=== PATIENT | male | born 1970 | race Caucasian/White ===

== ENCOUNTER 2024-12-16 10:28 | Emergency (ER) | payer OTHER, SELFPAY ==
[2024-12-16 11:08] VITALS: BP 109/66; PULSE 126; RESP 32; TEMP 37.4; O2SAT 94; BMI 17.7
[2024-12-16 12:01] LABS: PCR FLU A POSITIVE PCR FLU A (Negative); PCR FLU B Negative PCR FLU B (Negative); PCR RSV Negative PCR RSV (Negative); SARS PCR* Negative SARS-CoV-2 (Negative)
[2024-12-16 13:17] VITALS: BP 138/111; PULSE 126; RESP 26; TEMP 37.4; O2SAT 94
--- NOTE | 2024-12-16 13:30 | ED.GENADULT ---
HPI - General Adult General Date Seen: 12/16/24 Chief complaint: Shortness of Breath/Dyspnea Stated complaint: SOB Time Seen by Provider: 12/16/24 13:29 History of Present Illness HPI narrative: 54-year-old female with a history of tobacco use, COPD, presenting to the ER today for evaluation of symptoms that include headache, fever and chills, body aches, cough, shortness of breath, nausea and vomiting, also diarrhea. He actually started with fever probably 6 days ago but most of his symptoms started about 3 days ago. He has been sick with a lot of nausea and has not been able to keep any food down but has been able to drink water. He has all has having some watery diarrhea. In addition to that he is having cough that is wet sound but largely nonproductive. He can feel and hear himself wheezing in his chest. He has a history of an albuterol inhaler and has been trying to use that but it is not effective. He has also had fever and chills. He has had a cough. He has had generalized fatigue. No chest pain. No hemoptysis. No swelling in his legs. His is sick with similar symptoms but hers started after his. Related Data Home Medications ?Medication ?Instructions ?Recorded ?Confirmed albuterol 90 mcg/actuation aerosol mcg inhalation 12/16/24 inhaler Previous Rx's ?Medication ?Instructions ?Recorded ipratropium 0.5 mg-albuterol 3 mg 3 ml inhalation Q4-6H PRN #90 mL 12/16/24 (2.5 mg base)/3 mL nebulization soln nebulizer and compressor #1 ea 12/16/24 ondansetron 4 mg disintegrating 4 mg PO Q8H PRN nausea and 12/16/24 tablet vomiting #10 tabs oseltamivir 75 mg capsule (Tamiflu) 75 mg PO BID 5 days #10 caps 12/16/24 prednisone 20 mg tablet 40 mg (2 x 20 mg) PO DAILY #10 tabs 12/16/24 Allergies Allergy/AdvReac Type Severity Reaction Status Date / Time lidocaine patch Allergy Mild dizzy Uncoded 12/16/24 11:15 PFSH PFSH Social History Smoking Status: Current every day smoker What tobacco products do you use: cigarettes How often do you have a drink containing alcohol: 4 or more times a week How many standard drinks containing alcohol do you have on a typical day: 3 or 4 AUDIT-C Alcohol total score: 5 Non-prescribed substance use: denies use Exam Narrative: Exam Narrative: Constitutional: Appears well-developed and well-nourished. He is very slender without wiry build and a low BMI. Alert. Conversant. Non toxic. Very polite. HENT: Head: Atraumatic. Nose: Nose normal. Mouth/Throat: Oral mucosa is clear somewhat dry but not desiccated or cracked. no trismus. Mild pharyngeal erythema Tonsils symmetric. No tonsillar enlargement or exudate. Eyes: Conjunctivae normal. EOM normal. Pupils equal, round, and reactive to light. No scleral icterus. Neck: Normal range of motion. Neck supple. No tracheal deviation present. No JVD Cardiovascular: Tachycardic, regular rhythm. No gallop. No friction rub. No murmur heard. Symmetric radial artery pulses Pulmonary/Chest: Effort normal. No stridor. No respiratory distress. Diffuse coarse wheezes in all lung jay No rales. No rhonchi . No tenderness. Abdominal: Soft. Bowel sounds normal. No distension. No mass. No tenderness. No rebound. No guarding. Musculoskeletal: RUE: Normal range of motion. No tenderness. No deformity LUE: Normal range of motion. No tenderness. No deformity RLE: Normal range of motion. No edema. No tenderness. No deformity LLE: Normal range of motion. No edema. No tenderness. No deformity Neurological: Alert and oriented to person, place, and time. Normal strength. CN II-VII intact. No sensory deficit. GCS eye subscore is 4. GCS verbal subscore is 5. GCS motor subscore is 6. Normal coordination Skin: Skin is warm and dry. No rash noted. No pallor. Normal capillary refill. Psychiatric: Normal mood. Normal affect. Const: Vital Signs, click to edit/add: Vital Signs - 24 hr 12/16/24 11:08 12/16/24 13:17 Temperature 99.4 F 99.4 F Pulse Rate [Pulse Oximeter] 126 H 126 H Respiratory Rate 32 H 26 H Blood Pressure [Ri ght Upper Arm] 109/66 138/111 H Pulse Oximetry 94 94 Oxygen Delivery Me thod Room Air Room Air Course Course ED Course: Recheck-patient smiling and noting that he feels much better after Zofran and is able to tolerate foods. He also feels better after the DuoNebs and steroids. Breathing better. Repeat lung exam still reveals some wheezes but overall improved compared to arrival. Vital Signs Vital signs: Initial Vital Signs Temperature 99.4 F 12/16/24 11:08 Temperature Source Temporal Artery Scan 12/16/24 11:08 Pulse Rate 126 H 12/16/24 11:08 Respiratory Rate 32 H 12/16/24 11:08 Blood Pressure 109/66 12/16/24 11:08 Blood Pressure Mean 80 12/16/24 11:08 Blood Pressure Position Sitting 12/16/24 11:08 Pulse Oximetry 94 12/16/24 11:08 Oxygen Delivery Method Room Air 12/16/24 11:08 Vital Signs Temperature 99.4 F 12/16/24 11:08 Pulse Rate 126 H 12/16/24 11:08 Respiratory Rate 32 H 12/16/24 11:08 Blood Pressure 109/66 12/16/24 11:08 Pulse Oximetry 94 12/16/24 11:08 Oxygen Delivery Method Room Air 12/16/24 11:08 Temperature 99.4 F 12/16/24 13:17 Pulse Rate 126 H 12/16/24 13:17 Respiratory Rate 26 H 12/16/24 13:17 Blood Pressure 138/111 H 12/16/24 13:17 Pulse Oximetry 94 12/16/24 13:17 Oxygen Delivery Method Room Air 12/16/24 13:17 Medications Administered Medications: Discontinued Medications Generic Name Dose Route Start Last Admin Trade Name Freq PRN Reason Stop Dose Admin Albuterol/Ipratropium 1 neb 12/16/24 13:46 12/16/24 13:57 Iprat-Albut 0.5-2.5 Mg/3 Ml Neb IH 12/16/24 13:47 1 neb ONCE ONE Administration Ondansetron HCl 4 mg 12/16/24 13:46 12/16/24 13:57 Ondansetron Odt 4 Mg Tab PO 12/16/24 13:47 4 mg ONCE ONE Administration Prednisone 40 mg 12/16/24 13:46 12/16/24 13:56 Prednisone 20 Mg Tablet PO 12/16/24 13:47 40 mg ONCE ONE Administration Medical Decision Making [facility] Narrative Medical decision making narrative: This patient presents for evaluation of symptoms including fever and chills, myalgias, cough, shortness of breath, nausea and vomiting and diarrhea. For symptoms began probably 6 days ago but most of the symptoms started 3 days ago. Differential here includes COPD exacerbation, pneumonia, influenza, COVID, GI infection, appendicitis, colitis, diverticulitis, bowel obstruction, other GI pathology, among others. Nasal swab is positive for influenza a which I think would correlate with his symptoms. Although he is several days into the illness, at least 3 days, probably 6 days, because he is a smoker with COPD we will treat him with Tamiflu. Chest x-ray is negative for any acute pneumonia. No evidence for CHF He does have substantial wheezing on his clinical exam here. He has had minimal improvement with his at home inhaler but did have significant nebulizer given here in the ER. Although he was tachycardic, he is not hypoxic. Respiratory rate was elevated at 32 at triage but came down substantially after nebs. He is feeling better and is comfortable discharging home. Will send him home with a course of steroids and nebs. He needs a nebulizer machine at home, prescription provided. There is no signs at this point of serious bacterial infection such as OM, RPA, epiglottitis, [employer], strep pharyngitis, pneumonia, sinusitis, meningitis, bacteremia, serious bacterial infection. He has had trouble some nausea and vomiting and diarrhea for the past couple of days. He has signs of mild dehydration clinically but is feeling much better after Zofran. He feels comfortable discharging home and will be able to hydrate by mouth. Discussed the risk of serious illness from influenza. Close followup with primary care physician is indicated. Return to ED for fever > 103, protracted vomiting, confusion, or other worsening. Also counseled smoking cessation Lab Data Labs: Lab Results 12/16/24 Range/Units 11:18 SARS-CoV-2 (PCR) Negative SARS-CoV-2 (Negative) Influenza Type A (PCR) POSITIVE PCR FLU A A (Negative) Influenza Type B (PCR) Negative PCR FLU B (Negative) RSV (PCR) Negative PCR RSV (Negative) Imaging Data Chest x-ray: Attestation: I have reviewed the pertinent imaging results. My impression: No acute infiltrates Radiologist's impression: Lungs and pleural spaces: No evidence of pneumothorax. Slight rounding of the posterior costophrenic angles, likely secondary to prominent hyperinflation. Some bronchial wall thickening with slight reticular nodular prominence within the right lung, likely infectious bronchitis/bronchiolitis. Discharge Plan Discharge Clinical Impression: Influenza A, COPD exacerbation, Nausea Patient Disposition: Home, Self-Care Condition: Stable Instructions: Influenza (DC), COPD (Chronic Obstructive Pulmonary Disease) (ED), Acute Nausea and Vomiting (ED) Additional Instructions: As we discussed, please come back to the ER right away if you have worsening trouble breathing, high fevers, weakness, uncontrolled nausea and vomiting or dehydration, or if you have any concerns. Please follow-up with your regular doctor for recheck within 7 days. Prescriptions: New oseltamivir [Tamiflu] 75 mg capsule 75 mg PO BID 5 Days Qty: 10 0RF prednisone 20 mg tablet 40 mg PO DAILY Qty: 10 0RF ipratropium-albuterol 0.5 mg-3 mg(2.5 mg base)/3 mL solution for nebulization 3 ml inhalation Q4-6H PRNQty: 90 0RF (DME) nebulizer and compressor Device See Rx Instructions .Route Qty: 1 0RF Rx Instructions: As directed ondansetron 4 mg tablet,disintegrating 4 mg PO Q8H PRN (Reason: nausea and vomiting) Qty: 10 0RF No Action albuterol 90 mcg/actuation aerosol inhalation Follow Up/Referrals: Provider,Not a Local [Primary Care Provider] - Stand Alone Forms: [employer] Info Instructions
[2024-12-16] MEDS: predniSONE 20 MG TABLET 40 MG PO (13:56)
[2024-12-16] MEDS: IPRAT-ALBUT 0.5-2.5 MG/3 ML NEB 1 NEB IH (13:57)
[2024-12-16] MEDS: ONDANSETRON ODT 4 MG TAB PO (13:57)
--- OUTSIDE RECORDS SUMMARY | 2024-12-16 14:05 | XMS_ITS | Clinical Summary ---
Author Organization [facility] Address [address] [place] [id number] Care Team Providers Care Commercial Energy Rater Name Role Phone Unavailable Primary Care Provider Unavailabl e Allergies No known active allergies Medications UNABLE TO FIND Pt unsure of name, 2-3 times daily prn ointment applied to buttock area Active naproxen sodium (ALEVE) 220 MG tablet Take 220 mg by mouth 2 times daily (with meals) Active psyllium (METAMUCIL) 28.3 % packet Take 1 packet by mouth 2 times daily Active albuterol (PROAIR HFA/PROVENTIL HFA/VENTOLIN HFA) 108 (90 Base) MCG/ACT inhaler Inhale 2 puffs into the lungs every 6 hours as needed for shortness of breath / dyspnea or wheezing 18 g 2 Active predniSONE (DELTASONE) 20 MG tablet Take 2 tablets (40 mg) by mouth daily 8 tablet 2 Active traMADol (ULTRAM) 50 MG tablet Take 1 tablet (50 mg) by mouth every 6 hours as needed for severe pain 10 tablet 2 Active Active Problems Problem Noted Date Diagnosed Date Unilateral inguinal hernia 07/23/2016 Rectal bleeding 07/23/2016 Moderate single current epis ode of major depressive disorder 07/23/2016 Immunizations Name Administration Dates Next Due Influenza Vaccine >6 months,quad, PF 09/14/2016 TDAP Vaccine (Boostrix) 07/18/2011 Family History Medical History Relation Comments Colon Cancer No family hx of Relation Status Comments Daughter Alive Father Maternal Grandfather Maternal Grandmother Mother Alive Paternal Grandfather Paternal Grandmother Sister Alive Son Alive Social History Tobacco Use Types Packs/Day Years Used Date Smoking Tobacco: Every Day Cigarettes Smokeless Tobacco: Never Alcohol Use Standard Drinks/Week Comments Yes 0 (1 standard drink = 0.6 oz pur e alcohol) occa PHQ-2 Answer Date Recorded PHQ-2 Score 0 12/02/2018 Adolescent Education Answer Date Record ed Getting School Help Needed Not on file 08/31 Sex and Gender Information Value Date Recorded Sex Assigned at Not on file Legal Sex Male 4:34 AM DIESEL ENGINEER Gender Identity Not on file Sexual Orientation Not on file Last Filed Vital Signs Vital Sign Reading Time Taken Comments Blood Pressure 142/81 09/03/2022 9:45 PM CDT Pulse 81 09/03/2022 9:45 PM CDT Temperature 36.9 C (98.4 F) 09/03/2022 11:37 AM CDT Respiratory Rate 20 09/03/2022 11:37 AM CDT Oxygen Saturation 98% 09/03/2022 9:45 PM CDT Inhaled Oxygen Concentration - - Weight 46.7 kg (103 lb) 12/15/2018 12:15 PM DIESEL ENGINEER Height 160 cm (5' 3) 12/15/2018 12:15 PM DIESEL ENGINEER pe r pt Body Mass Index 18.25 12/15/2018 12:15 PM DIESEL ENGINEER Plan of Treatment Health Maintenance Due Date Last Done Comments ADVANCE CARE PLANNING 1970 ANNUAL REVIEW OF HM ORDERS 1968 CT COLONOGRAPHY 1968 FIT 1968 FLEX SIG 1968 sDNA (Cologuard) 1970 HIV SCREENING 01/31/1983 HEPATITIS C SCREENING 01/31/1986 Pneumococcal Vaccine: 50+ Years (1 of 2 - PCV) 01/31/1987 LIPID 2008 PHQ-9 01/20/2017 07/23/2016 ZOSTER IMMUNIZATION (1 of 2) 01/31/2018 COVID-19 Vaccine (3 - Moderna risk series) 05/09/2021 04/11/2021, 03/14/2021 LUNG CANCER SCREENING 09/03/2023 09/03/2022, 004 INFLUENZA VACCINE (#1) 2024 , 10/17/2018, 09/14/2016, Additional history exists YEARLY PREVENTIVE VISIT 03/01/2025 03/01/2024, 07/23 GLUCOSE 09/03/2025 09/03/2022, 07/23/2016 COLONOSCOPY 12/02/2026 12/02/2016, 12/02/2016 COLORECTAL CANCER SCREENING 12/02/2026 DTAP/TDAP/TD IMMUNIZATION (3 - Td or Tdap) 04/13/2031 04/13/2021, 07/18/2011, 11/29/1998 RSV VACCINE (1 - 1-dose 75+ series) 01/31/2043 HEPATITIS B IMMUNIZATION Completed 004, 01/30/1999, 11/29/1998 DEPRESSION ACTION PLAN Completed 01/09/2018 HPV IMMUNIZATION Aged Out No longer e ligible based on patient's age to complete this topic MENINGITIS IMMUNIZATION Aged Out No l onger eligible based on patient's age to complete this topic RSV MONOCLONAL ANTIBODY Aged Out No l onger eligible based on patient's age to complete this topic Procedures Procedure Name Priority Date/Time Associated Diagnosis Comments CT CHEST PULMONARY EMBOLISM W CONTRAST STAT 09/03/2022 4:00 PM CDT COMPREHENSIVE METABOLIC PANEL STAT 09/03/2022 11:43 AM CDT COLONOSCOPY Routine 12/02/2016 1:35 PM DIESEL ENGINEER from Last 3 Months or Most Recently Relevant to Health Maintenance Results * CT Chest Pulmonary Embolism w Contrast (09/03/2022 4:00 PM CDT) Anatomical Region Laterality Modality Chest, SUBRAD CT BODY, UMP CT CHEST Computed Tomography Impressions 09/03/2022 4:26 PM CDT IMPRESSION: 1. Age indeterminant fractures that are acute or recently subacute at the left eighth and ninth ribs, and right sixth rib. No pneumothorax or effusion. 2. No evidence for pulmonary embolism or acute thoracic aortic abnormality. 3. Emphysema. 4. A few indeterminate pulmonary nodules with the dominant nodule being new since 2003 at the right middle lobe. Recommend follow-up imaging for surveillance, with guidelines below. Recommendations for an incidental lung nodule = or > 6mm to 8mm: Low risk patients: Initial follow-up CT at 6-12 months, then consider CT at 18-24 months if no change. High risk patients: Initial follow-up CT at 6-12 months, then CT at 18-24 months if no change. *Low Risk: Minimal or absent history of smoking or other known risk factors. *Nonsolid (ground-glass) or partly solid nodules may require longer follow-up to exclude indolent adenocarcinoma. *Recommendations based on Guidelines for the Management of Incidental Pulmonary Nodules Detected at CT: From the Fleischner Society 2017, Radiology 2017. GLENROY GOLDSTEIN MD Narrative 09/03/2022 4:[address] CHEST PULMONARY EMBOLISM WITH CONTRAST 09/03/2022 4:00 PM CLINICAL HISTORY: Left lateral rib pain and cough; Left rales as well. TECHNIQUE: CT angiogram chest during arterial phase injection IV contrast. 2D and 3D MIP reconstructions were performed by the sleep lab technologist. Dose reduction techniques were used. CONTRAST: 55mL Isovue-370 COMPARISON: CT chest 07/07/2004. FINDINGS: ANGIOGRAM CHEST: Pulmonary arteries are normal caliber and negative for pulmonary emboli. Thoracic aorta is negative for dissection. No CT evidence of right heart strain. LUNGS AND PLEURA: No effusions. No pneumothorax. Emphysema. Newly identified indeterminant nodule that is 0.7 cm medial right middle lobe series 7 image 213. There are other small bilateral pulmonary nodules that are indeterminate. MEDIASTINUM/AXILLAE: No adenopathy or acute mediastinal abnormality otherwise seen. CORONARY ARTERY CALCIFICATION: Mild. UPPER ABDOMEN: Limited visualization but no acute abnormality is seen. MUSCULOSKELETAL: Nondisplaced fractures that are age indeterminant along the left lateral and posterior eighth and ninth ribs. Age-indeterminate fracture of the right lateral posterior sixth rib. Procedure Note Glenroy Goldstein MD - 09/03/2022 CT CHEST PULMONARY EMBOLISM WITH CONTRAST 09/03/2022 4:00 PM CLINICAL HISTORY: Left lateral rib pain and cough; Left rales as well. TECHNIQUE: CT angiogram chest during arterial phase injection IV contrast. 2D and 3D MIP reconstructions were performed by the sleep lab technologist. Dose reduction techniques were used. CONTRAST: 55mL Isovue-370 COMPARISON: CT chest 07/07/2004. FINDINGS: ANGIOGRAM CHEST: Pulmonary arteries are normal caliber and negative for pulmonary emboli. Thoracic aorta is negative for dissection. No CT evidence of right heart strain. LUNGS AND PLEURA: No effusions. No pneumothorax. Emphysema. Newly identified indeterminant nodule that is 0.7 cm medial right middle lobe series 7 image 213. There are other small bilateral pulmonary nodules that are indeterminate. MEDIASTINUM/AXILLAE: No adenopathy or acute mediastinal abnormality otherwise seen. CORONARY ARTERY CALCIFICATION: Mild. UPPER ABDOMEN: Limited visualization but no acute abnormality is seen. MUSCULOSKELETAL: Nondisplaced fractures that are age indeterminant along the left lateral and posterior eighth and ninth ribs. Age-indeterminate fracture of the right lateral posterior sixth rib. IMPRESSION: 1. Age indeterminant fractures that are acute or recently subacute at the left eighth and ninth ribs, and right sixth rib. No pneumothorax or effusion. 2. No evidence for pulmonary embolism or acute thoracic aortic abnormality. 3. Emphysema. 4. A few indeterminate pulmonary nodules with the dominant nodule being new since 2003 at the right middle lobe. Recommend follow-up imaging for surveillance, with guidelines below. Recommendations for an incidental lung nodule = or > 6mm to 8mm: Low risk patients: Initial follow-up CT at 6-12 months, then consider CT at 18-24 months if no change. High risk patients: Initial follow-up CT at 6-12 months, then CT at 18-24 months if no change. *Low Risk: Minimal or absent history of smoking or other known risk factors. *Nonsolid (ground-glass) or partly solid nodules may require longer follow-up to exclude indolent adenocarcinoma. *Recommendations based on Guidelines for the Management of Incidental Pulmonary Nodules Detected at CT: From the Fleischner Society 2017, Radiology 2017. GLENROY GOLDSTEIN MD Jaiden He DO [facility] [place] Final Result * (ABNORMAL) Comprehensive metabolic panel (09/03/2022 11:43 AM CDT) Sodium 139 136 - 145 mmol/L 09/03/2022 12:18 PM CDT [facility] Potassium 4.4 3.4 - 5.3 mmol/L 09/03/2022 12:18 PM CDT [facility] Chloride 99 98 - 107 mmol/L 09/03/2022 12:18 PM CDT [facility] Carbon Dioxide (CO2) 24 22 - 29 mmol/L 09/03/2022 12:18 PM CDT [facility] Anion Gap 16(H) 7 - 15 mmol/L 09/03/2022 12:18 PM CDT [facility] Urea Nitrogen 9.6 6.0 - 20.0 mg/dL 09/03/2022 12:18 PM CDT LABORATORY Creatinine 0.75 0.67 - 1.17 mg/dL 09/03/2022 12:18 PM CDT LABORATORY Calcium 9.8 8.6 - 10.0 mg/dL 09/03/2022 12:18 PM CDT LABORATORY Glucose 77 70 - 99 mg/dL 09/03/2022 12:18 PM CDT LABORATORY Alkaline Phosphatase 58 40 - 129 U/L 09/03/2022 12:18 PM CDT LABORATORY AST 35 10 - 50 U/L 09/03/2022 12:18 PM CDT LABORATORY ALT 29 10 - 50 U/L 09/03/2022 12:18 PM CDT LABORATORY Protein Total 7.3 6.4 - 8.3 g/dL 09/03/2022 12:18 PM CDT LABORATORY Albumin 4.4 3.5 - 5.2 g/dL 09/03/2022 12:18 PM CDT LABORATORY Bilirubin Total 0.9 <=1.2 mg/dL 09/03/2022 12:18 PM CDT LABORATORY GFR Estimate >90 >60 mL/min/1.7 3m2 09/03/2022 12:18 PM CDT LABORATORY Comment:Effective October 182020 eGFRcr in adults is calculated using the 2020 CKD-EPI creatinine equation which includes age and gender (Tanesha et al., NEJM, DOI: 10.1056/RBFZgy5878152) Blood STRUCTURE OF RIGHT UPPER LIMB / Unknown Venipuncture / Unknown 09/03/2022 11:43 AM CDT 09/03/2022 11:49 AM CDT us Marcio Campos MD LAB - BLOOD ORDERABLES Fi nal Result [facility] [address] Lab (1st floor, no room number) [place] [address], [facility] [phone] * COLONOSCOPY (12/02/2016 1:35 PM DIESEL ENGINEER) COLONOSCOPY [facility] Patient Name: Charlene Perera Procedure Date: 12/02/2016 1:35 PM Date of : 1970 Admit Type: Outpatient Age: 46 Gender: Male Attending MD: Abe Villarreal MD Total Sedation Time: __26___minutes continuous bedside 1:1 Instrument Name: 137 Procedure: Colonoscopy Indications: Hematochezia Providers: Abe Villarreal MD (Doctor) Referring MD: Georgiana Avila Md, MD (Referring MD) Medicines: Midazolam 4 mg IV, Fentanyl 200 micrograms IV Complications: No immediate complications. Procedure: Pre-Anesthesia Assessment: - Prior to the procedure, a History and Physical was performed, and patient medications and allergies were reviewed. The patient is competent. The risks and benefits of the procedure and the sedation options and risks were discussed with the patient. All questions were answered and informed consent was obtained. Patient identification and proposed procedure were verified by the physician in the procedure room. Mental Status Examination: alert and oriented. Airway Examination: normal oropharyngeal airway and neck mobility. Respiratory Examination: clear to auscultation. CV Examination: normal. Prophylactic Antibiotics: The patient does not require prophylactic antibiotics. Prior Anticoagulants: The patient has taken no previous anticoagulant or antiplatelet agents. ASA Grade Assessment: II - A patient with mild systemic disease. After reviewing the risks and benefits, the patient was deemed in satisfactory condition to undergo the procedure. The anesthesia plan was to use moderate sedation / analgesia (conscious sedation). Immediately prior to administration of medications, the patient was re-assessed for adequacy to receive sedatives. The heart rate, respiratory rate, oxygen saturations, blood pressure, adequacy of pulmonary ventilation, and response to care were monitored throughout the procedure. The physical status of the patient was re-assessed after the procedure. After obtaining informed consent, the colonoscope was passed under direct vision. Throughout the procedure, the patient's blood pressure, pulse, and oxygen saturations were monitored continuously. The Olympus Peds Colonoscope Model #PCF-H190L, Endora#137, SN#[id number] was introduced through the anus and advanced to the cecum, identified by appendiceal orifice and ileocecal valve. The colonoscopy was performed without difficulty. The patient tolerated the procedure well. The quality of the bowel preparation was good. Findings: The digital rectal exam was abnormal. Findings include non-thrombosed internal hemorrhoids. The exam was otherwise without abnormality on direct and retroflexion views. Impression: - Non-thrombosed internal hemorrhoids found on digital rectal exam. - The examination was otherwise normal on direct and retroflexion views. Recommendation: - Use sugar-free Metamucil one teaspoon PO BID PRN. - Repeat colonoscopy in 10 years for screening purposes. Procedure Code(s): --- Professional --- 29638, Colonoscopy, flexible, proximal to splenic flexure; diagnostic, with or without collection of specimen(s) by brushing or washing, with or without colon decompression (separate procedure) Diagnosis Code(s): --- Professional --- K64.8, Other hemorrhoids CPT copyright 2013 [employer]. All rights reserved. The codes documented in this report are preliminary and upon branding specialist review may be revised to meet current compliance requirements. Electronically signed by Abe Villarreal MD __ Abe Villarreal MD 12/02/2016 2:22 PM I was physically present for the entire viewing portion of the exam. Abe Villarreal MD Number of Addenda: 0 Note Initiated On: 12/02/2016 1:35 PM Procedure Date: 12/02/2016 1:35:04 PM Scope Withdrawal Time: 0 hours 6 minutes 28 seconds Total Procedure Duration: 0 hours 15 minutes 37 seconds Estimated Blood Loss: Scope In: 2:00:57 PM Scope Out: 2:16:34 PM RADIOLOGY RESULTS 12/02/2016 1:35 PM DIESEL ENGINEER Geogriana Avila MD PROCEDURES Final Result RADIOLOGY RESULTS from Last 3 Months or Most Recently Relevant to Health Maintenance Insurance [facility]
--- OUTSIDE RECORDS SUMMARY | 2024-12-16 14:05 | XMS_ITS | Referral Summary ---
Author Organization [facility] Address [address] [place] [address] Care Team Providers Care Cadd Instructor Name Role Phone Unavailable Primary Care Provider [...] months,quad, PF 09/14/2016 TDAP Vaccine (Boostrix) 07/18/2011 Social History Tobacco Use Types Packs/Day Years [...] on file Legal Sex Male 4:34 AM E TAILER Gender Identity Not on file Sexual Orientation [...] 46.7 kg (103 lb) 12/15/2018 12:15 PM E TAILER Height 160 cm (5' 3) 12/15/2018 12:15 PM E TAILER pe r pt Body Mass Index 18.25 12/15/2018 12:15 PM E TAILER Plan of Treatment Not on file Procedures Procedure Name Priority Date/Time Associated Diagnosis Comments CT CHEST PULMONARY EMBOLISM W CONTRAST STAT 09/03/2022 4:00 PM CDT COMPREHENSIVE METABOLIC PANEL STAT 09/03/2022 11:43 AM CDT COLONOSCOPY Routine 12/02/2016 1:35 PM E TAILER from Last 3 Months or Most Recently [...] Society 2017, Radiology 2017. GLENROY GOLDSTEIN MD [facility] 09/03/2022 4:[address] CHEST PULMONARY EMBOLISM WITH CONTRAST 09/03/2022 4:00 PM CLINICAL HISTORY: Left lateral rib pain and cough; Left rales as well. TECHNIQUE: CT angiogram chest during arterial phase injection IV contrast. 2D and 3D MIP reconstructions were performed by the clinical technologist. Dose reduction techniques were used. CONTRAST: [...] 3D MIP reconstructions were performed by the clinical technologist. Dose reduction techniques were used. CONTRAST: [...] 2017. GLENROY GOLDSTEIN MD Jaiden He DO G CT ORDERABLES Final Result * (ABNORMAL) Comprehensive [...] - 20.0 mg/dL 09/03/2022 12:18 PM CDT [facility] Creatinine 0.75 0.67 - 1.17 mg/dL 09/03/2022 12:18 PM CDT [facility] Calcium 9.8 8.6 - 10.0 mg/dL 09/03/2022 12:18 PM CDT [facility] Glucose 77 70 - 99 mg/dL 09/03/2022 12:18 PM CDT [facility] Alkaline Phosphatase 58 40 - 129 U/L 09/03/2022 12:18 PM CDT [facility] AST 35 10 - 50 U/L 09/03/2022 12:18 PM CDT [facility] ALT 29 10 - 50 U/L 09/03/2022 12:18 PM CDT LABORATORY Protein Total 7.3 6.4 - 8.3 g/dL 09/03/2022 12:18 PM CDT LABORATORY Albumin 4.4 3.5 - 5.2 g/dL 09/03/2022 12:18 PM CDT LABORATORY Bilirubin Total 0.9 <=1.2 mg/dL 09/03/2022 12:18 PM CDT [facility] GFR Estimate >90 >60 mL/min/1.7 3m2 09/03/2022 12:18 PM CDT [facility] Comment:Effective October 182020 eGFRcr in adults is calculated using the 2020 CKD-EPI creatinine equation which includes age and gender (Tanesha et al., NEJM, DOI: 10.1056/TRNLmu9274962) Blood STRUCTURE OF RIGHT UPPER LIMB / Unknown Venipuncture / Unknown 09/03/2022 11:43 AM CDT 09/03/2022 11:49 AM CDT us Marcoi Campos MD LAB - BLOOD ORDERABLES Fi nal Result LABORATORY [facility] [address] Lab (1st floor, no room number) [place] [address] [phone] * COLONOSCOPY (12/02/2016 1:35 PM E TAILER) COLONOSCOPY [facility] Patient Name: Charlene Perera Procedure Date: 12/02/2016 [...] The Olympus Peds Colonoscope Model #PCF-H190L, Endora#137, SN#[id number] was introduced through the anus and advanced [...] screening purposes. Procedure Code(s): --- Professional --- 75426, Colonoscopy, flexible, proximal to splenic flexure; diagnostic, with or without collection of specimen(s) by brushing or washing, with or without colon decompression (separate procedure) Diagnosis Code(s): --- Professional --- K64.8, Other hemorrhoids CPT copyright 2013 [employer]. All rights reserved. The codes documented in this report are preliminary and upon sample selector review may be revised to meet current [...] 2:16:34 PM RADIOLOGY RESULTS 12/02/2016 1:35 PM E TAILER Georgiana Avila MD PROCEDURES Final Result RADIOLOGY RESULTS from Last 3 Months or Most Recently Relevant to Health Maintenance Insurance [facility]
--- OUTSIDE RECORDS SUMMARY | 2024-12-16 14:05 | XMS_ITS | Clinical Summary ---
Author Organization [facility] Address [address] [place] [address] Care Team Providers Care Sign Fabricator Name Role Phone Zaheer Geiger PA-C Primary Care Provider [phone] Source Comments You are receiving this document as you are listed as the primary care provider,follow-up provider, or the patient has been referred to you for consultation.This is in compliance with the Medicare and[facility] Hospital[facility] EHR Incentive Program,which states Providers who transition their patient to another setting of careor provider of care or refers their patient to another provider of care shouldprovide summary care record for each transition of care or referral. [place] Allergies No known active allergies Medications No known medications Active Problems No known active problems Immunizations Name Administration Dates Next Due Flu Vac Preserv Free (3+yrs) 09/08/2006 HepA Adult (19+ yrs) 04/18/2004,11/29/1998 HepB Adult (Engerix-B, 20+ y rs, 3 dose series) 04/18/2004,01/30/1999,11/29/1998 Influenza IIV4 (Quadrivalent) 0.5mL (89317) 11/2017 Td 11/29/1998 Family History Medical History Relation Name Comments neg hx cancer Other no cancers col on or other Relation Name Status Comments Other Social History Tobacco Use Types Packs/Day Years Used Date Smoking Tobacco: Every Day Smokeless Tobacco: Never Comments:Smoking History Pac ks/day: 1/2 PPD Alcohol Use Standard Drinks/Week Comments Yes 0 (1 standard drink = 0.6 oz pur e alcohol) occas PHQ-2 Answer Date Recorded PHQ-2 Score 0 08/09/2020 Sex and Gender Information Value Date Recorded Sex Assigned at Not on file Gender Identity Not on file Sexual Orientation Not on file Last Filed Vital Signs Vital Sign Reading Time Taken Comments Blood Pressure 130/72 12/09/2018 10:08 AM GLUE MOUNTER OPERATOR Pulse 76 12/09/2018 10:08 AM GLUE MOUNTER OPERATOR Temperature 36.4 C (97.5 F) 07/09/2011 10:40 AM CDT Respiratory Rate 16 07/09/2011 10:40 AM CDT Oxygen Saturation 96% 07/09/2011 10:40 AM CDT Inhaled Oxygen Concentration - - Weight 47.6 kg (105 lb) 12/09/2018 10:08 AM GLUE MOUNTER OPERATOR Height - - Body Mass Index - - Plan of Treatment Health Maintenance Due Date Last Done Comments Hep C Screening (Preventive Services) 1970 PSA Screening Discussion 1970 Pneumococcal (1 - PCV) 01/31/1974 HIV Screening (Preventive Services) 1984 Adult Preventive Visit 01/31/1986 Cholesterol 04/09/2009 04/09/2004, 11/29/1998 Zoster/Shingles (1 of 2) 01/31/2018 DTaP/Tdap/Td (2 - Tdap) 07/18/2021 07/18/2011, 11/29 COVID-19 Vaccine (2 - season) 2024 03/14/2021 Influenza (#1) 2024 08/14/2020, 12/0 11/2017, 09/14/2016, Additional history exists Colonoscopy 12/02/2026 12/02/2016 (Completed) HepA Aged Out 04/18/2004, 11/29/1998 No lo nger eligible based on patient's age to complete this topic HepB Completed 04/18/2004, 01/15, 11/29/1998 Hib Aged Out No longer eligi ble based on patient's age to complete this topic IPV (Polio) Aged Out No longer eligi ble based on patient's age to complete this topic MCV4 Aged Out No longer eligi ble based on patient's age to complete this topic Procedures Procedure Name Priority Date/Time Associated Diagnosis Comments LIPID PANEL & DIRECT LDL (IF NEEDED) Routine 04/09/2004 11:59 AM CDT from Last 3 Months or Most Recently Relevant to Health Maintenance Results * (ABNORMAL) Lipid Panel and Direct LDL(If Needed) (04/09/2004 11:59 AM CDT) Hours Fasting 12.0 Hours HP CONVERSION Cholesterol/HDL Ratio Screen 5.0 No normal range HP CONVERSION Cholesterol 219(H) 125 - 199 mg/dL HP CONVERSION HDL Cholesterol 44 40 - 60 mg/dL HP CONVERSION Triglycerides 117 0 - 199 mg/dL HP CONVERSION LDL Calculated 152(H) 66 - 129 mg/dL HP CONVERSION Comment: 04/09/2004 11:5 9 AM CDT Marcio Mcnamara MD LAB_1 HP CONVERSION from Last 3 Months or Most Recently Relevant to Health Maintenance Care Teams Sign Fabricator Relationship Specialty Start Date End Date Zaheer Geiger PA-C [place] [id number] PCP - General Physician Benzene Washer 11/04/21
--- OUTSIDE RECORDS SUMMARY | 2024-12-16 14:05 | XMS_ITS | Clinical Summary ---
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 18 g 1 2 Active Immunizations Name Administration Dates Next Due COVID-19 vaccine (Moderna 100mcg/0.5mL) PF, MDV 04/11/2021,03/14/2021 Hepatitis A (Adult) 04/18/2004,11/29/1998 Hepatitis A (Peds),Unspecified 04/18/2004,1998 Hepatitis A, Unspecified 04/18/2004,11/29/1998 Hepatitis B (Adult) 04/18/2004,01/30/1999,1998 Influenza Virus, Unspecified 09/08/2006,09/08/20 06 Influenza, IIV3 (Age 6-35 mos) 09/13/2009 Influenza, IIV3 (Age >=3 years) 08/25/20 14,08/05/2012,08/13/2011,2009 Influenza, IIV4 08/14/2020,10/17/2018,09/14/2016 Influenza, IIV4 (=>6mos) MDV 09/14/2016 Td (Age >=7 Years) 11/29/1998 Tdap 04/13/2021,07/18/2011 Social History Tobacco Use Types Packs/Day Years Used Date Smoking Tobacco: Every Day Cigarettes Smokeless Tobacco: Never Tobacco Cessation:Ready to Q uit: Yes; Counseling Given: Yes Alcohol Use Standard Drinks/Week Comments Not Currently 21 (1 standard drink = 0.6 oz pu re alcohol) PHQ-2 Answer Date Recorded PHQ-2 TOTAL SCORE 0 09/05/2022 Social Connections Answer Date Recorded Frequency of Communication with Friends and Fami ly Not on file 09/05/2022 Sex and Gender Information Value Date Recorded Sex Assigned at Not on file Legal Sex 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 Gender Identity Not on file Sexual Orientation Not on file Obstetrics History Last Filed Vital Signs Vital Sign Reading Time Taken Comments Blood Pressure 142/100 11/13/2022 4:07 PM PSYCHOMETRIC EXAMINER Pulse 100 11/13/2022 4:04 PM PSYCHOMETRIC EXAMINER Temperature 36.8 C (98.2 F) 09/05/2022 12:20 PM CDT Respiratory Rate 18 09/05/2022 12:20 PM CDT Oxygen Saturation 98% 09/05/2022 12:20 PM CDT Inhaled Oxygen Concentration - - Weight 46.9 kg (103 lb 6.4 oz) 11/13/2022 4:04 P M PSYCHOMETRIC EXAMINER Height 161.3 cm (5' 3.5) 09/05/2022 12:20 PM CD T Body Mass Index 18.03 09/05/2022 12:20 PM CDT Plan of Treatment Health Maintenance Due Date Last Done Comments HIV for age 15-65 01/31/1983 Hepatitis C screening for ag e 18-79 01/31/1986 Colonoscopy through age 75 01/31/2013 Lipids for age 45-75 01/31/2013 Pneumococcal series for age 50+ (1 of 1 - PCV) 01/31/2018 Zoster (shingles) series for age 50+ (1 of 2) 01/31/2018 BMI (ht and wt on same day) for age 18+ 09/05/2023 09/05/2022, 04/13/2021 Depression screening for age 12+ 09/05/2023 09/05/20 COVID-19 vaccine series ( season) 2024 04/11/2021, 03/14/2021 Influenza for age 50-64 07/18/2024 08/14/20 20, 10/17/2018, 09/14/2016, Additional history exists Tetanus booster 04/13/2031 04/13/2021, 09/0 11/2010, 11/29/1998 Tdap Completed 04/13/2021, 07/18/2011 Insurance [employer] [facility] [facility]
== END 2024-12-16 14:52 | disposition home or self-care (01) ==
PROVIDERS: Emergency Provider Emergency Medicine
DX: J44.1 Chronic obstructive pulmonary disease with (acute) exacerbation (principal); J10.1 Influenza due to other identified influenza virus with other respiratory manifestations
CPT/HCPCS: 71046; 87631; 99284; A9270; J7512